=== PATIENT | female | born 1995 | race Asian ===

== ENCOUNTER 2019-10-09 22:23 | Emergency (ER) | payer OTHER ==
[2019-10-10 00:45] LABS: HIV (1/2) Antibody/Antigen Non-Reactive (NonReactive); HIV 1/2 INDEX 0.18 S/CO (<1.00); Hep C IgG Ab Non-Reactive (NonReactive); Hep C Index 0.11 S/CO (0-0.79)
[2019-10-10 00:51] LABS: HBSAB Concentration 975.25 mIU/mL; Hep B Surf AB Reactive (NonReactive)
== END 2019-10-09 23:05 | disposition home or self-care (01) ==
LOC: ERS 22:23
DX: S61.230A Puncture wound without foreign body of right index finger without damage to nail, initial encounter (principal); W26.8XXA Contact with other sharp object(s), not elsewhere classified, initial encounter
CPT/HCPCS: 36415; 86706; 86803; 87389; 99283